=== PATIENT | female | born 1955 | race Caucasian/White ===

== ENCOUNTER 2018-08-08 12:17 | Emergency (ER) | payer MEDICAID ==
[~2018-08-08] VITALS: Ht 154.9 cm; Wt 94.5 kg
[~2018-08-08 12:17] MED LIST: ACYC800T PO; HYDR-762 PO; IBUP-1542 PO; OMEP40CA3 PO
[2018-08-08 12:20] VITALS: Ht 154.9 cm; Wt 94.5 kg
[2018-08-08] MEDS ORDERED: ACETAMINOPHEN 500 MG TAB PO STA (13:06)
[2018-08-08] MEDS ORDERED: ACET500C5 PO (14:35)
[2018-08-08 16:10] VITALS: BP 160/77; PULSE 80; RESP 20
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
--- NOTE | 2018-08-09 14:29 | RADRPT ---
Vent Rate: 90 bpm RR Interval: 0 msec SC Interval: 140 msec QRS Duration: 86 msec QT Interval: 362 msec QTC Interval: 442 msec P-R-T [place]: 70 - 39 - 65 degrees Normal sinus rhythm Normal ECG Electronically Signed By: [facility]
== END 2018-08-08 16:12 | disposition home or self-care (01) ==
LOC: FTE 12:17
DX: S00.03XA Contusion of scalp, initial encounter (principal); I10 Essential (primary) hypertension; S29.9XXA Unspecified injury of thorax, initial encounter; V49.49XA Driver injured in collision with other motor vehicles in traffic accident, initial encounter
CPT/HCPCS: 70450; 71045; 71110; 93005; Z7502; Z7610

== ENCOUNTER → 2018-10-06 | Emergency (ER) | payer MEDICAID, OTHER ==
[~2018-10-06] VITALS: Ht 154.9 cm; Wt 80.0 kg
[~2018-10-06] MED LIST changes: +ACET500C5 PO; +ACETAMINOPHEN 500 MG TAB PO STA; +CEPH-443 PO; +CEPHALEXIN 500 MG CAP PO ONE; +IBUP-1561 PO; +KETOROLAC 15 MG INJ IM STA; +KETOROLAC 30 MG INJ IM STA; +PHEN-537 PO
[2018-10-06 06:39] VITALS: Ht 154.9 cm; Wt 80.0 kg
--- NOTE | 2018-10-06 07:30 | ERD ---
ER Documentation Chief Complaint Chief Complaint LEFT FLANK PAIN ONSET 2 HRS AGO, RAD BACK HPI This is a 62-year-old female presents for evaluation of left flank pain intermittent for the last 2 hours, with radiation to the back. She endorses some dysuria, she denies fever, no chest pain or shortness of breath. Symptoms are intermittent, and are not alleviated or aggravated by anything. She has no known history of kidney stones. ROS All systems reviewed and are negative except as per history of present illness. Medications Home Meds Active Scripts Acetaminophen* (Tylophen*) 500 Mg Capsule, 1 CAP PO Q6H PRN for PAIN AND OR ELEVATED TEMP, #20 CAP Prov:BILL COLEMAN PA-C 08/08/18 Acyclovir* (Acyclovir*) 800 Mg Tablet, 800 MG PO 5 TIMES DAILY for 10 Days, TAB Prov:JOSE ALBERTO WILCOX MD 08/16/15 Ibuprofen* (Motrin*) 600 Mg Tab, 600 MG PO Q6H PRN for PAIN AND OR ELEVATED TEMP, #30 TAB Prov:JOSE ALBERTO WILCOX MD 08/16/15 Hydrocodone Bit-Acetaminophen* ([place]*) 10-325 Mg Tablet, 1 TAB PO Q6 PRN for PAIN, #10 TAB Prov:OJSE ALBERTO WILCOX MD 08/16/15 Omeprazole* (Prilosec*) 40 Mg Capsule.dr, 40 MG PO BID, #20 CAP Prov:LINDSAY RICKS MD 08/14/15 Ibuprofen* (Ibuprofen*) 600 Mg Tablet, 600 MG PO Q8, #20 TAB Prov:LINDSAY RICKS MD 08/14/15 Allergies Allergies: Coded Allergies: No Known Allergy (Unverified , 08/08/18) PMhx/Soc History of Surgery: No Anesthesia Reaction: No Hx Neurological Disorder: No Hx Respiratory Disorders: No Hx Cardiac Disorders: Yes (HTN) Hx Psychiatric Problems: No Hx Miscellaneous Medical Probl: No Hx Alcohol Use: No Hx Substance Use: No Hx Tobacco Use: No Smoking Status: Never smoker Physical Exam Vitals Vital Signs Date Temp Pulse Resp B/P (MAP) Pulse Ox O2 O2 Flow FiO2 Time Delivery Rate 10/06/18 98.1 83 18 161/74 99 06:39 (103) Physical Exam Const: No acute distress Head: Atraumatic Eyes: Normal Conjunctiva ENT: Normal External Ears, Nose and Mouth. Neck: Full range of motion. No meningismus. Resp: Clear to auscultation bilaterally Cardio: Regular rate and rhythm, no murmurs Abd: Soft, non tender, there is left lower quadrant tenderness. Normal bowel sounds Skin: No petechiae or rashes Back: No midline or flank tenderness Ext: No cyanosis, or edema Neur: Awake and alert Psych: Normal Mood and Affect Result Diagram: 10/06/18 0740 10/06/18 0740 Results 24 hrs Laboratory Tests Test 10/06/18 07:13 10/06/18 07:40 Urine Color SAJAN Urine Clarity CLOUDY Urine pH 5.0 Urine Specific [place] 1.023 Urine Ketones NEGATIVE mg/dL Urine Nitrite NEGATIVE mg/dL Urine Bilirubin NEGATIVE mg/dL Urine Urobilinogen NEGATIVE mg/dL Urine Leukocyte Esterase NEGATIVE Uli/ul Urine Microscopic RBC > 182 /HPF Urine Microscopic WBC 24 /HPF Urine Squamous Epithelial Cells FEW /HPF Urine Bacteria FEW /HPF Urine Mucus FEW /HPF Urine Hemoglobin 3+ mg/dL Urine Glucose NEGATIVE mg/dL Urine Total Protein 2+ mg/dl White Blood Count 7.4 10^3/ul Red Blood Count 4.20 10^6/ul Hemoglobin 12.8 g/dl Hematocrit 40.0 % Mean Corpuscular Volume 95.2 fl Mean Corpuscular Hemoglobin 30.5 pg Mean Corpuscular Hemoglobin Concent 32.0 g/dl Red Cell Distribution Width 13.4 % Platelet Count 355 10^3/UL Mean Platelet Volume 8.8 fl Immature Granulocytes % 0.400 % Neutrophils % 66.3 % Lymphocytes % 23.4 % Monocytes % 7.1 % Eosinophils % 2.3 % Basophils % 0.5 % Nucleated Red Blood Cells % 0.0 /100WBC Immature Granulocytes # 0.030 10^3/ul Neutrophils # 4.9 10^3/ul Lymphocytes # 1.7 10^3/ul Monocytes # 0.5 10^3/ul Eosinophils # 0.2 10^3/ul Basophils # 0.0 10^3/ul Nucleated Red Blood Cells # 0.0 10^3/ul Sodium Level 146 mmol/L Potassium Level 3.8 mmol/L Chloride Level 111 mmol/L Carbon Dioxide Level 28 mmol/L Anion Gap 7 Blood Urea Nitrogen 14 mg/dl Creatinine 0.61 mg/dl Est Glomerular Filtrat Rate mL/min > 60 mL/min Glucose Level 119 mg/dl Calcium Level 8.9 mg/dl Total Bilirubin 0.5 mg/dl Direct Bilirubin 0.00 mg/dl Indirect Bilirubin 0.5 mg/dl Aspartate Amino Transf (AST/SGOT) 20 IU/L Alanine Aminotransferase (ALT/SGPT) 22 IU/L Alkaline Phosphatase 84 IU/L Troponin I < 0.012 ng/ml Total Protein 7.1 g/dl Albumin 3.8 g/dl Globulin 3.30 g/dl Albumin/Globulin Ratio 1.15 Lipase 73 U/L Current Medications Medications Dose Sig/Milton Start Time Status Last (Trade) Ordered Route PRN Stop Time Admin Dose Reason Admin Ketorolac 15 mg ONCE STAT 10/06/18 DC 10/06/18 Tromethamine IM 07:24 07:43 (Toradol) 10/06/18 07:25 1,000 mg ONCE STAT 10/06/18 DC 10/06/18 Acetaminophen PO 09:06 09:15 (Tylenol 10/06/18 09:09 Tab) Procedures/MDM 62-year-old female presents for left flank, left lower quadrant pain. Differential diagnosis includes diverticulitis versus pyelonephritis, versus nephrolithiasis. Anginal equivalent considered but less likely, plan for pain control labs and CT abdomen pelvis to further assess. EKG: Rate/Rhythm: Normal Sinus Rhythm QRS, ST, T-waves: No changes consistent w/ acute ischemia Impression: No evidence of ischemia or arrhythmia 9:20 AM: Labs reviewed all unremarkable, hematuria was noted, CT abdomen pelvis showed no acute findings, and no evidence of kidney stones. Query possible passed kidney stone versus hemorrhagic pyelonephritis. Given that she is symptomatic, we will treat empirically with Keflex, at this point patient is stable for discharge home, strict return precautions were given for fever, dysuria or any worsening symptoms at discharge she was in no distress. Departure Diagnosis: Primary Impression: Flank pain Condition: Stable DAKOTAH POLLACK MD Oct 06, 2018 07:30
[2018-10-06 10:18] VITALS: BP 156/80; PULSE 90; RESP 20
== END | disposition home or self-care (01) ==
LOC: E/R 06:37
DX: R10.32 Left lower quadrant pain (principal); I10 Essential (primary) hypertension
CPT/HCPCS: 74176; 80053; 81001; 83690; 84484; 85025; 87086; 93005; 96372; J1885; Z7502; Z7610